=== PATIENT | female | born 1995 | race African-American/Black ===

== ENCOUNTER 2022-09-28 08:16 | Outpatient (CLI) | payer OTHER, SELFPAY ==
[2022-09-28 10:06] LABS: Basophils Percent Auto 0.2 % (0.2-1.2); Eosinophils Absolute Auto 0.1 K/mm3 (0-0.3); Eosinophils Percent Auto 0.5 % (0-4.4); Hematocrit 35.3 % (37.0-47.0); Hemoglobin 11.5 g/dL (12.0-15.0); Immature Granulocyte Percent A 0.8 % (0-0.5); Lymphocytes Absolute Auto 2.42 K/mm3 (0.9-3.2); Lymphocytes Percent Auto 19.1 % (18.3-44.2); Mean Corpuscular HGB Conc 32.6 g/dl (32-36); Mean Corpuscular Hemoglobin 28.8 pg (26-34); Mean Corpuscular Volume 88.5 fl (80-100); Monocytes Absolute Auto 0.8 K/mm3 (0.1-0.6); Monocytes Percent Auto 6.5 % (2.6-8.5); Neutrophils Absolute Auto 9.3 K/mm3 (1.3-6.7); Neutrophils Percent Auto 72.9 % (45.5-73.1); Platelet Count Result 269 k/mm3 (150-375); Red Blood Count 3.99 M/mm3 (4.2-5.4); Red Cell Distribution Width 13.2 % (11.5-14.5); White Blood Count 12.7 K/mm3 (4.5-10.0)
[2022-09-28 10:17] LABS: Glucose 1 Hour PP 50gm Dose 87 mg/dL
== END 2022-09-28 08:17 | disposition home or self-care (01) ==
PROVIDERS: Visit Provider Obstetrics & Gynecology
DX: Z34.90 Encounter for supervision of normal pregnancy, unspecified, unspecified trimester (principal)
CPT/HCPCS: 36415; 82947; 85025

== ENCOUNTER 2022-10-10 15:50 | Outpatient (RCR) | payer OTHER, SELFPAY ==
[2022-10-10 16:10] LABS: Basophils Percent Auto 0.1 % (0.2-1.2); Eosinophils Percent Auto 0.3 % (0-4.4); Hematocrit 36.2 % (37.0-47.0); Hemoglobin 11.9 g/dL (12.0-15.0); Immature Granulocyte Absolute 0.04 K/mm3 (0.00-0.031); Immature Granulocyte Percent A 0.3 % (0-0.5); Lymphocytes Absolute Auto 2.23 K/mm3 (0.9-3.2); Lymphocytes Percent Auto 18.6 % (18.3-44.2); Mean Corpuscular HGB Conc 32.9 g/dl (32-36); Mean Corpuscular Hemoglobin 29.2 pg (26-34); Mean Corpuscular Volume 88.9 fl (80-100); Mean Platelet Volume 9.7 fl (7.4-10.4); Monocytes Absolute Auto 0.8 K/mm3 (0.1-0.6); Monocytes Percent Auto 6.8 % (2.6-8.5); Neutrophils Absolute Auto 8.9 K/mm3 (1.3-6.7); Neutrophils Percent Auto 73.9 % (45.5-73.1); Platelet Count Result 252 k/mm3 (150-375); Red Blood Count 4.07 M/mm3 (4.2-5.4); Red Cell Distribution Width 13.4 % (11.5-14.5)
[2022-10-10 17:01] LABS: HIV 1/2 Ab P24 Ag Result Negative (Negative)
[2022-10-11 11:03] LABS: Rapid Plasma Reagin Non-Reactive (NonReactive)
[2022-10-11] MEDS: RHO(D) IMMUNE GLOBULIN 300 MCG/2 ML SYRINGE IM (17:06)
== END 2023-01-08 23:59 | disposition home or self-care (01) ==
LOC: ANHLAB 15:50
PROVIDERS: Visit Provider Obstetrics & Gynecology
DX: O26.899 Other specified pregnancy related conditions, unspecified trimester (principal); Z67.91 Unspecified blood type, Rh negative
CPT/HCPCS: 36415; 85025; 85461; 86592; 86703; 86850; 86900; 86901; 90384; 96372; G0432; J2790

== ENCOUNTER 2022-12-10 09:28 | Outpatient (RCR) | payer OTHER, SELFPAY ==
--- NOTE | ~2022-12-10 | US_ITS ---
EXAMINATION: US OB limited w BPP DATE: 12/10/2022 10:47 INDICATION: Decreased movement. Estimated gestational age of 40 weeks and 3 days. TECHNIQUE: Real-time pelvic ultrasound was performed. COMPARISON: None. FINDINGS: There is a single living fetus in vertex presentation. The placenta is posterior. heart rate i s 138 beats per minute (bpm). The amniotic fluid index is 9.2 cm, which is normal. Biophysical profile performed by the technologist: breathing (30 sec sustained breathing in 30 minutes): 2 out of 2 movement (3 gross body movements in 30 minutes): 2 out of 2 tone (one episode of klycsvq-lqxhzxhzg-kmaxkbe limb movement): 2 out of 2 Amniotic fluid pocket (2 cm): 2 out of 2 Total score: 8 out of 8 IMPRESSION: 1. Single living fetus in vertex presentation. 2. Biophysical profile 8 out of 8. Reviewed, dictated and finalized at location A.
== END 2023-01-16 11:28 | disposition home or self-care (01) ==
LOC: ANHOBOP 09:28
PROVIDERS: Visit Provider Obstetrics & Gynecology
DX: O36.8130 Decreased fetal movements, third trimester, not applicable or unspecified (principal); Z3A.40 40 weeks gestation of pregnancy
CPT/HCPCS: 59025; 76815; 76819

== ENCOUNTER 2022-12-17 17:03 | Inpatient (IN) | payer OTHER, SELFPAY ==
--- NOTE | 2022-12-17 18:36 | PC.NURSE ---
Pt is denying induction at this time. Called Dr. De La Rosa to discuss, orders received to do an NST, cervical exam, and discuss the risks of not following the induction process.
[2022-12-17 19:22] VITALS: BP 138/92; PULSE 77
[2022-12-17 19:31] VITALS: BP 136/85; PULSE 78
[2022-12-17 19:46] VITALS: BP 146/90; PULSE 72
--- NOTE | 2022-12-17 20:00 | PC.NURSE ---
Pt stated to MARIYA Matamoros that she does not want to have her labor induced. Dr De La Rosa aware. Pt to sign out against medical advise if she chooses to leave. Discussed with pt that her FHT tracing is not reactive at this time. Discussed heart rate variations and importance of accelerations. Pt advised her baby does not have 15x15 beat accelerations. Pt does feel baby moving. Pt discussed with and states she wants to sign out against medical advise. Advised pt that medical recommendation at this gestation with non reactive NST is induction. Advised that baby could . Pt states she will return if decreased movment.
[2022-12-17 20:01] VITALS: BP 139/90; PULSE 79
--- NOTE | 2022-12-17 20:22 | LDADM ---
This patient, Trish Alcantar, was admitted to Labor/Delivery/Recovery 107 on 12/17/22 at 17:03. Plans for labor, pain management and were discussed with patient. Patient/family oriented to hospital policies and general routines including ID bracelet, bed and alarms, visiting hours, pain management, procedures, bathroom and other care routines, personal items, smoking policy, room service/diet and guest tray routines, security routines, and visiting hours. Patient/Family are encouraged to report perceived risks to care and to ask questions if they do not understand what they are told or what they should do. See OBIX for further documentation.
--- NOTE | 2022-12-17 20:30 | P.PNAN_ITS ---
Anes - Eval Pre Procedure Procedure: Labor epidural Date/Time: 12/17/22 20:30 Surgeon: Rj Preop Diagnosis: Abdominal pain with contractions Pre Op Diagnosis: IOL Patient Data Age: 27 Gender: F Height: 1.75 m Weight: Last Vital Signs Pulse 79 12/17/22 20:01 BP 139/90 12/17/22 20:01 O2 Del Method Room Air 12/17/22 20:20 Allergies Allergy/AdvReac Type Severity Reaction Status Date / Time Sulfa (Sulfonamide Allergy Mild Hives Verified 12/10/22 08:52 Antibiotics) Home Medications Medication Instructions Recorded Confirmed Type docosahexaenoic acid 200 mg 200 mg PO DAILY 09/12/22 12/11/22 History capsule ( DHA) : gestational age HCG: positive Patient hx anesthesia problems: none Family hx anesthesia problems: none Results Review: All pre-operative results and documents have been reviewed as part of the pre- operative evaluation. [facility] Past Medical History Medical History GERD (gastroesophageal reflux disease) Headache Overweight (BMI 25.0-29.9) and not yet delivered Surgical History Surgical History H/O foot surgery [place] teeth extracted Family History Family History Other Cerebrovascular accident Diabetes mellitus Hypertension Social History Social History Smoking status: Never smoker Alcohol intake: never Substance use: former Substance use type: does not use Lack of Transportation: No Lack of Food: Never True Current Housing: I Have Housing Concerned About Future Housing: No Difficulty Paying Gas/Electric Bills: No Difficulty Paying for Meds: No Currently Unemployed: No Education: Bachelor's Degree Difficulty w/ Childcare or Family Care: No Occupation/Education: occupation Gender identity (if verbalized by the patient): Female Sexual Orientation (if Verbalized by the Patient): Straight or Heterosexual Spiritual care concerns: No Exam Day of Procedure 12/17/22 20:30 Patient weight: overweight Airway: Mallampati scale class II
[2022-12-17 20:31] VITALS: TEMP 36.2
== END 2022-12-17 20:33 | disposition left against medical advice (07) | DRG 833 ==
LOC: ANHLDR 17:07
PROVIDERS: Admitting Provider Obstetrics & Gynecology; Visit Provider Obstetrics & Gynecology
DX: O47.1 False labor at or after 37 completed weeks of gestation (principal); Z3A.41 41 weeks gestation of pregnancy

== ENCOUNTER 2022-12-18 16:03 | Inpatient (IN) | payer OTHER, SELFPAY ==
[2022-12-18] VITALS (19 sets, daily range): BP systolic 125–146; BP diastolic 77–95; PULSE 80–96; TEMP 37.1–37.3; O2SAT 99; BMI 44.2
--- NOTE | 2022-12-18 16:18 | PM.IMHP ---
H&P: HPI History of Present Illness Date/Time: 12/18/22 16:18 Chief Complaint: Medical induction of labor Narrative: She is a 27 y/o G1 at 41 5/7 weeks admitted for [facility] for gestational hypertension. She has cancelled 2 prior inductions for postdates, states she wasn't ready. The last cancellation which was on Dec 17 she signed out AMA due to recommendations to stay for inductions due to nonreassuring tracing with post dates. She was seen in office the next day and her blood pressures were high. This was her second elevated blood pressure. She met criteria for gestational hyperetension. She was informed of risk of continuing with gestational hypertension and post dates. She agreed to induction. She was recommended to go to L and D immediately from office to make sure she does not have pre-eclampsia and she was informed of risk of pre-eclampsia. She arrived on L and D approximately 4 hours later. She had also c/o waking up with increase wetness and cramping. She was informed that will rule out rupture of membranes on L and D. The rupture of membranes test on L and D was negative. Pre- eclamptic labs negative. Review of Systems Review of Systems: All systems reviewed & are unremarkable except as noted in HPI and below Constitutional: Constitutional: Reports no additional constitutional complaints and Denies headache(s) Eyes: Eyes: Denies spots in vision ENT: Reports system reviewed and no additional complaints, except as documented and Denies headache(s) Cardiovascular: Cardiovascular: Denies chest pain and Denies dyspnea Respiratory: Respiratory: Denies dyspnea Gastrointestinal: Gastrointestinal: Reports no additional gastrointestinal complaints Genitourinary: Genitourinary: Reports amenorrhea Musculoskeletal: Musculoskeletal: Reports no additional musculoskeletal complaints Integumentary/Breasts: Skin/Breast: Denies breast mass and Denies rash Neurologic: Denies headache(s) Psychiatric: Psychiatric: Reports no additional psychiatric complaints [facility] Past Medical History Medical History GERD (gastroesophageal reflux disease) Headache Overweight (BMI 25.0-29.9) and not yet delivered Surgical History Surgical History H/O foot surgery [place] teeth extracted Family History Family History Other Cerebrovascular accident Diabetes mellitus Hypertension Social History Social History Smoking status: Never smoker Alcohol intake: never Substance use: never Substance use type: does not use Lack of Transportation: No Lack of Food: Often True Current Housing: I Have Housing Concerned About Future Housing: No Difficulty Paying Gas/Electric Bills: No Difficulty Paying for Meds: No Currently Unemployed: No Education: Bachelor's Degree Difficulty w/ Childcare or Family Care: No Occupation/Education: occupation Gender identity (if verbalized by the patient): Female Sexual Orientation (if Verbalized by the Patient): Straight or Heterosexual Spiritual care concerns: No Meds Home Medications and Allergies Home Medications Medication Instructions Recorded Confirmed Type docosahexaenoic acid 200 mg 200 mg PO DAILY 09/12/22 12/11/22 History capsule ( DHA) Allergies Allergy/AdvReac Type Severity Reaction Status Date / Time Sulfa (Sulfonamide Allergy Mild Hives Verified 12/18/22 17:23 Antibiotics) Exam Const: General: no acute distress Eyes: General: appearance normal, both eyes and all related structures Resp: Effort & Inspection: normal respiratory effort Cardio: Rate: regular rate GI: Other: Gravid no fundal tenderness no right upper quadrant pain : External Female Exam: normal external
[2022-12-18 16:54] LABS: Basophils Percent Auto 0.2 % (0.2-1.2); Eosinophils Absolute Auto 0.1 K/mm3 (0-0.3); Eosinophils Percent Auto 0.7 % (0-4.4); Hematocrit 36.1 % (37.0-47.0); Hemoglobin 11.7 g/dL (12.0-15.0); Immature Granulocyte Absolute 0.08 K/mm3 (0.00-0.031); Immature Granulocyte Percent A 0.6 % (0-0.5); Lymphocytes Absolute Auto 2.38 K/mm3 (0.9-3.2); Lymphocytes Percent Auto 19.1 % (18.3-44.2); Mean Corpuscular HGB Conc 32.4 g/dl (32-36); Mean Corpuscular Hemoglobin 28.1 pg (26-34); Mean Corpuscular Volume 86.8 fl (80-100); Mean Platelet Volume 10.2 fl (7.4-10.4); Monocytes Absolute Auto 0.8 K/mm3 (0.1-0.6); Monocytes Percent Auto 6.4 % (2.6-8.5); Neutrophils Absolute Auto 9.1 K/mm3 (1.3-6.7); Platelet Count Result 256 k/mm3 (150-375); Red Blood Count 4.16 M/mm3 (4.2-5.4); Red Cell Distribution Width 13.9 % (11.5-14.5); White Blood Count 12.4 K/mm3 (4.5-10.0)
[2022-12-18 17:03] LABS: Alanine Aminotransferase 19 U/L (6-35); Albumin Level 3.4 g/dL (3.5-5.1); Alkaline Phosphatase 134 U/L (38-126); Anion Gap 8 mmol/L (8-16); Aspartate Amino Transferase 23 U/L (14-36); Bilirubin,Total 0.3 mg/dL (0.2-1.3); Blood Urea Nitrogen 8 mg/dL (7-17); Calcium 8.9 mg/dL (8.4-10.2); Carbon Dioxide 20 mmol/L (22-30); Chloride 106 mmol/L (98-107); Estimated Glomerular Filt Rate > 60; Glucose 116 mg/dL (65-110); Potassium 3.6 mmol/L (3.4-5.0); Sodium 134 mmol/L (137-145)
[2022-12-18 17:04] LABS: Uric Acid 3.5 mg/dL (2.5-7.5)
--- NOTE | 2022-12-18 17:28 | LDADM ---
This patient, Trish Alcantar, was admitted to Labor/Delivery/Recovery 103 on 12/18/22 at 16:03. Plans for labor, pain management and were discussed with patient. Patient/family oriented to hospital policies and general routines including ID bracelet, bed and alarms, visiting hours, pain management, procedures, bathroom and other care routines, personal items, smoking policy, room service/diet and guest tray routines, security routines, and visiting hours. Patient/Family are encouraged to report perceived risks to care and to ask questions if they do not understand what they are told or what they should do. See OBIX for further documentation.
[2022-12-18] MEDS: DEXTROSE 5%/LACTATED RINGERS 1,000 ML 100 ML IV CONT (21:13)
[2022-12-18 22:55] LABS: Creatinine Urine 311.6 mg/dL
[2022-12-18 23:13] LABS: Total Protein Urine Random < 5 mg/dL
[2022-12-18 23:14] LABS: Ur Ttl Prot Creatinine Ratio < 0.02 mg/mg (0-0.20)
[2022-12-19] VITALS (124 sets, daily range): BP systolic 103–165; BP diastolic 65–139; PULSE 53–177; RESP 16; TEMP 36.6–37.8; O2SAT 91–100
[2022-12-19] MEDS: LACTATED RINGERS 1,000 ML 125 ML IV CONT (01:00)
[2022-12-19 09:16] LABS: Rapid Plasma Reagin Non-Reactive (NonReactive)
[2022-12-19] MEDS: OXYTOCIN 30 UNITS/NS 500 ML 30 UNITS/500 ML BAG 125 UNITS IV CONT (09:48)
[2022-12-19] MEDS: WITCH HAZEL 40 PADS 1 PAD TOPICAL (11:34)
--- NOTE | 2022-12-19 12:00 | OBPPTRN ---
Patient transferred to post room #278 via wheelchair. Support person present. Oriented to unit, room, information board, rooming in, admission packet and security measures. Patient verbalizes understanding.
--- NOTE | 2022-12-19 12:26 | PC.NURSE ---
[id number] Introductions were made, then consulted with patient to assess needs related to . Mother led the conversation with her?plans to feed?her infant and the?experience so far with the first feeding. Mother denies pain with the first feeding. is in the nursery at this time. Mother is encouraged to give lgyo-ej-aqxk time with massage touch to encourage . Discussed with mother what to expect the 1st and 2nd 24 hours with feeding a infant. Mother states she wants to breastfeed giving her infant exclusive breast milk. Resources provided for inpatient with name written on the white board. Instructed mother to call for assistance if her infant is not waking to feed or there is pain with . Mother voiced understanding of information and will call if there is a request for assistance.
[2022-12-19] MEDS: IBUPROFEN 600 MG TABLET PO (12:43)
[2022-12-19] MEDS: DOCUSATE SODIUM 100 MG CAPSULE PO (16:53)
[2022-12-20 05:33] LABS: Hemoglobin 11.1 g/dL (12.0-15.0)
--- NOTE | 2022-12-20 05:58 | PM.OBPNVD ---
OB - PN: Subj Subjective Date/time seen: 12/19/22 0840 Tracing reviewed, cat 2, patient without good pain relief from epidural, anesthesia redosed epidual, she is in active labor and progressing, will allow better analgesia and then AROM. She did not get good relief with the redose, she was feeling pressure, therefore AROM, no fluid, FSE placed cervix 8 cm. Tracing Cat 2. Discussed with her assume thick meconium since no fluid with AROM will have peds available for delivery. She continued to have inadequate relief from epidural and was spontaneously pushing and was soon complete. OB - PN: Obj Data Labs 12/20/22 05:11 12/18/22 16:23 Labs: Laboratory Results - last 24 hr 12/18/22 12/20/22 16:23 05:11 Hgb 11.1 L Hct 34.0 L RPR Non-reactive OB - PN A/P Time Spent With Patient Time: Total time spent is greater than 50% in coordination of care (as documented) at patient's floor/unit and/or counseling patient:
--- NOTE | 2022-12-20 06:05 | PM.OBPRVD ---
OB - Delivery Note Procedure Delivery date: 12/19/22 Procedure: Spontaneous vaginal delivery Events: Gestational Hypertension and Other (Post dates) Induction method: Per Pitocin Protocol Delivery augmentation: Rupture of Membranes and Pitocin Delivery monitor: External FHT, External Uterine and Internal FHT Route of delivery: Laceration Description: None Specimen: Yes (Placenta and cord) Quantitative Blood Loss (ml): 150 Anesthesia type: Epidural Disposition: Floor Narrative: She was admitted on 12/18 for [facility] for gestational hypertension. Pre-eclampsia ruled out. Pitocin was started. IVF fluid bolus started which improved the variability. Tracing during the induction was catergory 2, intermittent minimal variability. Pitocin was stopped for episode of severe variables and then tachycardia. The variables resolved and pitocin restarted. She did progress into active labor. Epidural was placed on request. Once she dilated to 7 then did not have good analgesia. Attempted adjusting epidural dose no significant relief. She was intermittently pushing. AROM no fluid. Assumed thick mec. At this time cervix 90% and she was 0 station, would be difficult to place IUPC and she was continuing to dilate, FSE applied to assess variability. She continued to push and was complete. Second stage of labor with tracing with moderate variables decelerations, and she then delivered a female ,loose nuchal cord manually reduced, nose and mouth suctioned at perineum, thick meconium noted, the anterior shoulders were delivered with gentle traction and the rest of delivered, there was a loose bandelero cord, infant crying and vigorous and placed on maternal abdomen, cord doubly clamped and cut. then take to warmer by nursery staff in attendance. Cord blood and cord gases obtained. Placenta delivered spontaneously intact. No lacerations. Patient tolerated procedure well. [place] Baby Date of : 12/19/22 Time of : 09:14 Weeks of gestation at delivery: 41 gender: Female Weight (pounds): 7 Weight (ounces): 10 presentation: vertex position: Right Occiput Anterior Placenta delivery description: Spontaneous Cord Vessel Description: 3 Vessels and Clamped/Cut score one minute: 8 score five minutes: 9 AMG Delivery Billing Delivery Delivery: Delivery Charge
[2022-12-20 07:55] VITALS: BP 132/85; PULSE 72; RESP 16; TEMP 36.9; O2SAT 98
[2022-12-20] MEDS: MULTIVIT/MIN/PREN/FOL AC/IRON TABLET 1 TAB PO (11:08)
--- NOTE | 2022-12-20 12:33 | WPDANLDPN2 ---
Anes-Prog Note L&D Date/Time: 12/20/22 12:33 Comfortable throughout: labor (pt states comfortable up to 5cm then felt intense pain/pressure until delivery despite repeated boluses) Neuraxial method: epidural Epidural/Spinal procedure site: clean & non-tender Neuro status: Neuro function grossly intact. Cardiovascular status: normal Respiratory status: normal Airway patency: baseline Mental status: baseline Post-Op hydration status: normal Vital Signs: Last Vital Signs Temp 98.5 F 12/20/22 07:55 Pulse 72 12/20/22 07:55 Resp 16 12/20/22 07:55 BP 132/85 12/20/22 07:55 Pulse Ox 98 12/20/22 07:55 O2 Del Method Room Air 12/19/22 16:50 Pain score (VAS): 2 I/O: Intake & Output 12/19/22 12/20/22 12/20/22 23:59 07:59 15:59 Intake Total 240 Balance 240 Post-procedural complaints: none Patient feedback: Patient satisfied with anesthetic care.
--- NOTE | 2022-12-20 14:33 | P.PNOB_ITS ---
OB - PN: Subj Subjective Date/time seen: 12/20/22 14:33 Patient comments: pain well controlled, tolerating diet and other (Decreasing lochia.) baby status: doing well and nursing well [place] feeding status: exclusively breast feeding OB - PN: Obj Data Labs 12/20/22 05:11 12/18/22 16:23 Labs: Laboratory Results - last 24 hr 12/20/22 12/20/22 05:00 05:11 Hgb 11.1 L Hct 34.0 L Blood Type B Negative Antibody Screen Negative Screen Negative Baby's Blood Type B pos Baby's MISA Positive Doses of RhIg Required 1 OB - PN A/P Assessment and Plan (1) Vaginal delivery: Code(s): O80 - Encounter for full-term uncomplicated delivery Status: Acute Assessment and Plan: Doing well. Routine care. Plan day: 1 Plan: routine care Comments: Patient doing well. Time Spent With Patient Time: Total time spent is greater than 50% in coordination of care (as documented) at patient's floor/unit and/or counseling patient: Exam Psych: Affect: normal affect Other: Abd: fundus firm below umbilicus, nontender Ext: nontender
--- NOTE | 2022-12-20 15:19 | PC.NURSE ---
[id number] Purposefully rounded to assess needs. Mother verbalizes she is able to independently latch infant with appropriate positioning/alignment. She denies any nipple discomfort and is responsively . After asking open ended questions to inquire about latching she describes her nipples after infant detaches as pointed or flatten . RN reviewed the nipple could be elongated or a little bigger;however, there is to not be misshaping as she describes. Assistance is offered to improve latch and mother states all feedings are not misshaping her nipple. Reviewed waking infant, changing diaper, brne-cn-nzja, stimulating and latching with a big, wide open gape to protect her nipple. Infant is currently meeting outcomes for weight, output, jaundice and feeding frequencies of 8-12 times in 24 hours. Mother declines any additional assistance/education at this time. Mother is encouraged to call for assistance if her infant doesn?t latch or there is discomfort with latching. Mother voiced understanding of information shared and the mom reminded of the mom/baby guide for an additional resource. Reported to the primary RN.
[2022-12-20 20:00] VITALS: BP 136/84; PULSE 80; RESP 18; TEMP 36.8; O2SAT 99
[2022-12-21 08:00] VITALS: BP 142/83; PULSE 72; RESP 16; TEMP 36.7; O2SAT 99
[2022-12-21] MEDS: MULTIVIT/MIN/PREN/FOL AC/IRON TABLET 1 TAB PO (08:10)
[2022-12-21] MEDS: RHO(D) IMMUNE GLOBULIN 300 MCG/2 ML SYRINGE IM (10:16)
--- NOTE | 2022-12-21 11:56 | PM.OBPNVD ---
OB - PN: Subj Subjective Date/time seen: 12/21/22 11:56 Patient comments: pain well controlled, tolerating diet and other (Decreasing lochia.) baby status: doing well and nursing well OB - PN: Obj Data Labs 12/20/22 05:11 12/18/22 16:23 Labs: Laboratory Results - last 24 hr 12/20/22 05:00 Blood Type B Negative Antibody Screen Negative Screen Negative Baby's Blood Type B pos Baby's MISA Positive Doses of RhIg Required 1 OB - PN A/P Assessment and Plan (1) Vaginal delivery: Code(s): O80 - Encounter for full-term uncomplicated delivery Status: Acute Plan day: 2 Plan: discharge home and other Comments: Patient doing well. Follow up 4-6 weeks. Discharge instructions provided. Time Spent With Patient Time: Total time spent is greater than 50% in coordination of care (as documented) at patient's floor/unit and/or counseling patient: Time with patient: less than 15 minutes Exam Psych: Affect: normal affect Other: Abd: fundus firm below umbilicus, nontender Ext: nontender
--- NOTE | 2022-12-21 11:59 | PM.OBDSVD ---
DS: Admitting Diagnosis Discharge Date 12/21/22 Admitting Diagnosis Gestational hypertension. Post dates DS: Discharge Diagnosis Discharge Diagnosis (1) Vaginal delivery: Code(s): O80 - Encounter for full-term uncomplicated delivery Status: Acute OB - DS: Summary Hospital Course Hospital Course: She is admitted for medical induction of labor due to gestational hypertension. She was also postdates. She had Pitocin induction. She had an uncomplicated vaginal delivery. she did well. Baby was doing well. She did not have any signs or symptoms of preeclampsia. Her blood pressures were mostly 130s to 120s over 80s. She was discharged home on day 2. Hypertension precautions discussed post vaginal delivery precautions discussed. OB Procedures : Ultrasound OB Procedures Intrapartum: Spontaneous Vag Delivery OB Procedures: : None Peripartum Data Delivery Method: Natural Vaginal Laceration Description: None complications: none Status at Discharge Functional status at discharge: independent ambulation Time Spent with Patient Time attestation: Total time spent providing and/or coordinating discharge services: DS: Data Data Completed and Pending Completed studies during hospitalization: Pending at discharge 12/19/22 09:18 Surgical [PTH] Routine Labs on day of discharge: Labs from last 24 hours 12/20/22 05:00 Blood Type B Negative Antibody Screen Negative Screen Negative Baby's Blood Type B pos Baby's MISA Positive Doses of RhIg Required 1 Procedures/Treatments: Spontaneous vaginal delivery Discharge Plan Discharge Attending physician on discharge: Regino De La Rosa Discharging Clinician: Regino De La Rosa Patient Disposition: Home, Self-Care Activity: may shower, no straining and pelvic rest Diet: regular Patient Instructions: Antibiotic Form, Vaginal Delivery (DC), Hypertension During (DC) Stand Alone Forms: General Discharge Information Follow-up/Referrals: Regino De La Rosa MD [Physician] - Call for Appointment (Follow up in one to two weeks) Discharge Medications: No Action DHA 200 mg capsule 200 mg PO DAILY Date of admission: 12/18/22 16:03 Primary Care Provider: PHYSICIAN,RESEARCH BIOSTATISTICIAN Admitting Provider: Regino De La Rosa Attending physician on admission: Regino De La Rosa Condition: Stable
--- NOTE | 2022-12-21 14:15 | PC.NURSE ---
1300-Patient viewed the discharge video Mother & Baby Care, The First Two Weeks . Patient was given the opportunity and encouraged to ask questions. Patient verbalized understanding of information shared and has been given the mother/baby guide for home reference.
== END 2022-12-21 16:20 | disposition home or self-care (01) | DRG 807 ==
LOC: ANHLDR 22:41 → ANHOB2 12-19 12:06
PROVIDERS: Admitting Provider Obstetrics & Gynecology; Visit Provider Obstetrics & Gynecology
DX: O13.4 Gestational [pregnancy-induced] hypertension without significant proteinuria, complicating childbirth (principal); Z37.0 Single live birth; Z3A.41 41 weeks gestation of pregnancy; O69.81X0 Labor and delivery complicated by cord around neck, without compression, not applicable or unspecified; O48.0 Post-term pregnancy
CPT/HCPCS: 36415; 80053; 82570; 84112; 84156; 84550; 85014; 85018; 85025; 85461; 86592; 86850; 86900; 86901; 88307; 90384; A9270; J2590; J2790; J2795; J7120; J7121

== ENCOUNTER 2023-01-02 10:09 | Outpatient (CLI) | payer OTHER, SELFPAY | END 2023-01-02 10:10 | disposition home or self-care (01) | LOC: ANHLAB 10:10 | PROVIDERS: Visit Provider Obstetrics & Gynecology | DX: R39.89 Other symptoms and signs involving the genitourinary system (principal) | CPT/HCPCS: 87086; 87088 ==